=== PATIENT | female | born 1995 | race Caucasian/White ===

== ENCOUNTER 2021-04-17 20:10 | Inpatient (IN) | payer OTHER ==
[2021-04-17] MEDS ORDERED: CITRIC ACID-SODIUM CITRATE 15 ML CUP PO ONE (20:51)
[2021-04-17] MEDS ORDERED: ceFAZolin 3 GM in SODIUM CHLORIDE 0.9% 100 ML IVPB ONE (20:51)
[2021-04-17] MEDS ORDERED: LACTATED RINGERS 1,000 ML IV ONE (20:51)
[2021-04-17 21:01] LABS: Basophils % (A) 0 %; Eosinophils % (A) 0 %; HCT 39.3 % (34.0-46.0); HGB 13.3 gm/dL (11.4-16.0); Lymphocytes # (A) 1.6 k/uL (1.0-4.8); Lymphocytes % (A) 17 %; MCH 32.1 pg (25.0-35.0); MCHC 33.9 g/dL (31.0-37.0); MCV 94.8 fL (80.0-100.0); Mean Platelet Volume 9.7; Monocytes # (A) 0.6 k/uL (0-1.0); Monocytes % (A) 6 %; Neutrophils % (A) 74 %; Platelet Count 201 k/uL (150-450); RBC 4.15 m/uL (3.80-5.40); RDW 12.6 % (11.5-15.5); WBC 9.4 k/uL (3.8-10.6)
--- NOTE | 2021-04-17 21:02 | P.HPOB ---
History of Present Illness H&P Date: 04/17/21 Chief Complaint: Vaginal bleeding, , no care at this facility This is a 26-year-old 2 para 1 female estimated date of confinement May 03 per patient whose had the entirety of her care at [facility]. She states that she's had hypertension was scheduled for a section (repeat) on Tuesday for this reason. Patient was seen in the office yesterday and had an elevated blood pressure and at that time states she had no blood work done. Patient states she was walking began having some bleeding. On admission here patient has a significant blood pressure elevation. Preeclampsia labs are pending. Patient indicates that her first section was done due to hypertension. Patient denies any other problems however her records are made unavailable to us. Review of Systems Genitourinary: Reports abnormal vaginal bleeding, Reports Past Medical History Past Medical History: Hypertension History of Any Multi-Drug Resistant Organisms: None Reported Past Surgical History: Section Past Anesthesia/Blood Transfusion Reactions: No Reported Reaction Past Psychological History: No Psychological Hx Reported Smoking Status: Never smoker Past Alcohol Use History: None Reported Past Drug Use History: None Reported Medications and Allergies Home Medications Medication Instructions Recorded Confirmed Type Aspirin [Children's Aspirin] 1 tab PO ONCE 04/17/21 04/17/21 History Pnv No.95/Ferrous Fum/Folic AC 1 tab PO ONCE 04/17/21 04/17/21 History [ Multivitamin Tablet] Allergies Allergy/AdvReac Type Severity Reaction Status Date / Time No Known Allergies Allergy Verified 04/17/21 20:27 Exam Intake and Output 04/17/21 04/17/21 04/17/21 06:59 14:59 22:59 Other: Weight 136.078 kg - OBG Physical Exam Abdomen: bowel sounds normal, no diffuse tenderness, no bruit present, no guarding noted, no hepatomegaly, no splenomegaly, no mass Vulva: both: normal Uterus: enlarged Assessment and Plan Assessment: This is a 26-year-old 2 para 1 female 37-6/7 week intrauterine with previous section, vaginal bleeding, gestational hypertension rule out preeclampsia. records are not made available to me on this patient from her other doctor therefore we have to assume this is significant hypertension requiring delivery. Patient had scheduled repeat on Tuesday and therefore proceed with immediate delivery at this time by section. I explained this to the patient and her family and they understand and agree to proceed. I did also discuss the surgery and risks and risks of infection, bleeding, possible injury bowel, bladder, vessels, and/or other organs. All the patient's questions are answered and a written consent is obtained. (1) 37 or more weeks gestation of Current Visit: Yes Status: Acute Code(s): [id number] - SNOMED Code(s): 92508298 (2) Gestational hypertension Current Visit: Yes Status: Acute Code(s): O13.9 - GESTATIONAL HTN W/O SIGNIFICANT PROTEINURIA, UNSP TRIMESTER SNOMED Code(s): 81620378 (3) Previous delivery affecting Current Visit: Yes Status: Acute Code(s): O34.219 - MATERNAL CARE FOR UNSP TYPE SCAR FROM PREVIOUS DEL SNOMED Code(s): 095620483 (4) History of inadequate care Current Visit: Yes Status: Acute Code(s): O09.30 - SUPRVSN OF PREG W INSUFFICIENT ANTENAT CARE, UNSP TRIMESTER SNOMED Code(s): 171923283
[2021-04-17 21:09] LABS: ALT 14 U/L (4-34); AST 22 U/L (14-36); African American GFR (CKD) >90 (>60 ml/min/1.73 sqM); Blood Urea Nitrogen 8 mg/dL (7-17); LDH 526 U/L (313-618); Non-African American GFR(CKD) >90 (>60 ml/min/1.73 sqM); Uric Acid 5.2 mg/dL (3.7-7.4)
[2021-04-17 21:42] LABS: INR 0.8 (<1.2); Prothrombin Time 9.3 sec (9.0-12.0)
[2021-04-17 21:48] LABS: Appearance,Urine Clear (Clear); Bilirubin,Urine Negative (Negative); Blood,Urine Negative (Negative); Color,Urine Yellow; Glucose,Urine (UA) Negative (Negative); Ketones,Urine Negative (Negative); Leukocyte Esterase,Urine Negative (Negative); Nitrite,Urine Negative (Negative); Protein,Urine Trace (Negative); Specific Gravity,Urine 1.023 (1.001-1.035); Urobilinogen,Urine <2.0 mg/dL (<2.0)
[2021-04-17 22:02] LABS: Creatinine,Urine Random 157.3 mg/dL
[2021-04-17] MEDS ORDERED: OXYTOCIN 30 UNITS/500 ML NS BAG IV ONE (22:02)
[2021-04-17] MEDS ORDERED: MORPHINE SULFATE (PF) 0.3 MG/0.3 ML SYR ONE (22:02)
[2021-04-17] MEDS ORDERED: KETOROLAC 15 MG/ML 1 ML VIAL ONE (22:02)
[2021-04-17] MEDS ORDERED: ONDANSETRON 4 MG/2 ML VIAL ONE (22:02)
[2021-04-17 22:03] LABS: Creatinine,Urine Random 161.2 mg/dL; Protein/Creatinine Ratio,Urine 0.074
[2021-04-17] MEDS ORDERED: diphenhydrAMINE 25 MG CAP PO PRN (22:56)
[2021-04-17] MEDS ORDERED: diphenhydrAMINE 50 MG/ML 1 ML VIAL IVP PRN (22:56)
[2021-04-17] MEDS ORDERED: METOCLOPRAMIDE 5 MG/ML 2 ML VIAL IVP PRN (22:56)
[2021-04-17] MEDS ORDERED: NALOXONE 0.4 MG/ML 1 ML VIAL IV PRN (22:56)
[2021-04-17] MEDS ORDERED: ONDANSETRON 4 MG/2 ML VIAL IVP PRN (22:56)
[2021-04-17] MEDS ORDERED: ACETAMINOPHEN TAB 500 MG TAB PO PRN (22:56)
[2021-04-17] MEDS ORDERED: LANOLIN CREAM 5 GM TUBE TOPICAL PRN (22:56)
[2021-04-17] MEDS ORDERED: ACETAMINOPHEN IV (For NPO) 1,000 MG in EMPTY BAG 1 BAG IVPB PRN (22:56)
[2021-04-17] MEDS ORDERED: SIMETHICONE 80 MG CHEWABLE PO PRN (22:56)
[2021-04-17] MEDS ORDERED: ZOLPIDEM 5 MG TAB PO PRN (22:56)
[2021-04-17] MEDS ORDERED: OXYTOCIN 30 UNITS/500 ML NS 30 UNIT in SALINE 1 500ML.BAG IV SCH (23:00)
--- NOTE | 2021-04-17 23:09 | P.OP ---
Date of Procedure: 04/17/21 Preoperative Diagnosis: #1: 37-6/7 week intrauterine . #2: Gestational hypertension. #3: Previous section. #4: No care at this institution. #5: Morbid obesity Postoperative Diagnosis: Same Procedure(s) Performed: Repeat low transverse section Anesthesia: spinal Surgeon: Ritesh Herndon Gas Appliance Installer #1: Adelaide Beck Estimated Blood Loss (ml): 1,000 Urine output (ml): 600 Pathology: other (Placenta) Condition: stable Disposition: floor Indications for Procedure: Please see dictated H&P for intimate details of this patient's admission. Brief summary this pleasant 26-year-old 2 para 1 female 37-6/7 weeks gestation presented to this labor and delivery with complaints of vaginal bleeding. Patient's care is another institution records are unavailable to me at the time of admission. On admission patient is significant elevated blood pressure which was persistent. Preeclampsia labs were negative. Patient scheduled for repeat section on Tuesday apparently for this hypertension. At this time was recommended proceed with delivery due to the above circumstances then severe gestational hypertension. Patient does understand the surgery and risks and risks of infection, bleeding, possible injury bowel, bladder, vessels, and/or other organs. All the patient's questions are answered and a written consent obtained. Operative Findings: This is a vigorous viable female Apgars 8 and 9 delivery time was 2216 hrs. Description of Procedure: This patient has a Leon catheter placed to straight drain. Patient is subsequently taken to the operating room where she sat up and spinal anesthetic is administered without incident. With an adequate level of anesthesia patient has abdominal prep and drape. Scalpels and taken the previous Pfannenstiel incision is then incised. A second scalpel is taken down the fascia the fascia scored with a knife. Fascial incision extended bilaterally using the Colón scissors. Of note the fascia on the patient's left side is quite thin from her previous section. The rectus muscles are then the peritoneum was then identified. Peritoneal incision extended superior and inferior without difficulty. There are some omental adhesions to the anterior abdominal wall. At this time the Wilian self-retaining retractor is placed. The bladder perito neum was then taken off the lower uterine segment sharply. Scalpels and taken low transverse uterine incision then made. Using a hemostat I enter the uterine cavity bluntly and there is loss of copious amount of clear fluid. Infant is then guided through the incision with fundal pressure delivered. Mouth and nares are bulb suctioned. We then have deliver the anterior and posterior shoulder and rest this infant's body. This is a vigorous viable female Apgars are 8 and 9 delivery time is 2216 hrs. After delivery of the infant the umbilical cords doubly clamped and cut appears to be trivascular. Placenta is then manually extracted intact. The uterus is then externalized. Uterine incision is then demarcated with Main clamps. Uterine incision then closed using 0 Vicryl running locked fashion 2 layers. Excellent hemostasis is noted. Uterus placed back in the abdomen. Excess fluid is removed from the abdomen and pelvis. Excellent hemostasis is noted. The parietal peritoneum was then identified and closed using 0 Vicryl running fashion. Rectus muscles reapproximated in 0 Vicryl interrupted fashion. Fascia is then closed using 0 PDS. Fascial incision is intact and hemostatic. Subcutaneous tissues and closed using a 3-0 Vicryl. Skin is then closed using fiona. All counts are correct 3. There are no complications. and mother are stable delivery room.
[2021-04-18] MEDS: LACTATED RINGERS 1,000 ML IV SCH ×4 (00:49→20:20)
[2021-04-18] MEDS: KETOROLAC 15 MG/ML 1 ML VIAL IVP SCH ×4 (05:37→23:46)
--- NOTE | 2021-04-18 06:50 | P.MSEPDOC ---
Presenting Problems - Arrival Data Date of Arrival on Unit: 04/17/21 Time of Arrival on Unit: 20:30 Mode of Transport: Ambulatory - Complaint OB-Reason for Admission/Chief Complaint: Vaginal Bleeding Comment: pt presents to triage for spotting Medical History - Information : 2 Para: 1 Term: 1 : 0 Abortions: Spontaneous or Elective: 0 Number of Living Children: 1 - Gestational Age Gestational Age by LINN (wks/days): 37 Weeks and 5 Days - History Complications: Chronic HTN Review of Systems - Review of Systems Constitutional: No problems Breast: No problems ENT: No problems Cardiovascular: No problems Respiratory: No problems Gastrointestinal: No problems Genitourinary: No problems Musculoskeletal: No problems Neurological: No problems Skin: No problems Vital Signs - Temperature Temperature: 96.8 F Temperature Source: Temporal Artery Scan - Pulse Right Brachial Pulse Rate: 83 Pulse Assessment Method: Automatic Cuff - Respirations Respiratory Rate: 16 - Blood Pressure Right Arm Blood Pressure: 108/52 Blood Pressure Mean: 70 Blood Pressure Source: Automatic Cuff Medical Screen Scoring - Uterine Contractions Frequency From (mins): 5 Frequency To (mins): 8 Intensity: Mild Resting: Soft to palpation - Assessment - Baby A Baseline FHR: 145 Heart Rate - NICHD Category: Category I (Normal) NST: Reactive Physician Notification - Physician Notified Physician Notified Date: 04/17/21 Physician Notified Time: 20:40 Physician: Ritesh Herndon New Order Received: Yes - Notification Comment Comment: admit pt and will perform repeat section for hypertension Maternal Triage Index - Maternal Triage Index Presenting for scheduled procedure w/no complaint: No - Stat/Priority 1 Stat Priority 1: Yes Provider Notified: Ritesh Herndon Provider Notified Time: 20:40 Criteria Met for Priority 1: sbp greater than 160 Disposition - Disposition OB Disposition: Admit, LDRP Suite I agree with the RN Medical Screening Exam: Yes Case reviewed; plan agreed upon as documented in EMR&OBIX.: Yes Diagnosis: GESTATIONAL HTN W/O SIGNIFICANT PROTEINURIA, THIRD TRIMESTER (Admission for delivery)
--- NOTE | 2021-04-18 06:51 | P.PNOBGPC ---
Subjective - Subjective Patient reports: Reports appetite normal, Reports voiding normally, Reports pain well controlled, Reports ambulating normally : doing well Objective - Vital Signs Latest vital signs: Vital Signs Temp Pulse Resp BP Pulse Ox 04/18/21 06:50 96.8 F L 83 16 108/52 04/18/21 03:11 96.8 F L 83 16 108/52 04/18/21 00:54 96.4 F L 86 16 124/60 97 04/18/21 00:26 97.3 F L 95 18 168/82 04/18/21 00:24 74 16 134/62 98 04/17/21 23:54 75 16 140/78 04/17/21 23:24 93 18 130/73 98 04/17/21 23:09 88 18 131/74 04/17/21 22:53 97.5 F L 85 18 129/70 97 04/17/21 21:00 97.3 F L 95 18 168/82 Intake and Output 04/17/21 04/17/21 04/18/21 14:59 22:59 06:59 Intake Total 1600 1500 Output Total 700 200 Balance 900 1300 Intake: IV 1600 1500 Output: Urine 700 200 Other: Voiding Method Indwelling Catheter Weight 136.078 kg 136.078 kg - Exam Lungs: bilateral: normal Chest: Normal S1, Normal S2 Extremities: Present: normal Abdomen: Present: normal appearance, soft. Absent: distention, tenderness Incision: Present: normal, dry, intact Uterus: Present: normal, firm - Labs Labs: Abnormal Lab Results - Last 24 Hours (Table) 04/17/21 Range/Units 21:28 Urine Protein Trace H (Negative) Assessment and Plan Assessment: Postoperative day #1. Patient is resting without new complaints. Vital signs are stable she is afebrile. Uterus is firm nontender and her incision is intact and dry. Plan today is to check a CBC, encourage ambulation, advance her diet, and continue routine postoperative care. (1) 37 or more weeks gestation of Current Visit: Yes Status: Acute Code(s): [id number] - SNOMED Code(s): 11874037 (2) Gestational hypertension Current Visit: Yes Status: Acute Code(s): O13.9 - GESTATIONAL HTN W/O SIGNIFICANT PROTEINURIA, UNSP TRIMESTER SNOMED Code(s): 69908745 (3) Previous delivery affecting Current Visit: Yes Status: Acute Code(s): O34.219 - MATERNAL CARE FOR UNSP TYPE SCAR FROM PREVIOUS DEL SNOMED Code(s): 461248047 (4) History of inadequate care Current Visit: Yes Status: Acute Code(s): O09.30 - SUPRVSN OF PREG W INSUFFICIENT ANTENAT CARE, UNSP TRIMESTER SNOMED Code(s): 863646103
[2021-04-18] MEDS: SENNOSIDES-DOCUSATE SODIUM 1 EACH TAB PO SCH ×2 (08:00→20:09)
[2021-04-18 09:25] LABS: Basophils % (A) 0 %; Eosinophils # (A) 0.1 k/uL (0-0.7); Eosinophils % (A) 1 %; HCT 33.9 % (34.0-46.0); HGB 11.8 gm/dL (11.4-16.0); Lymphocytes % (A) 16 %; MCH 33.3 pg (25.0-35.0); MCHC 34.9 g/dL (31.0-37.0); MCV 95.4 fL (80.0-100.0); Mean Platelet Volume 9.2; Monocytes # (A) 0.6 k/uL (0-1.0); Monocytes % (A) 5 %; Neutrophils # (A) 9.2 k/uL (1.3-7.7); Neutrophils % (A) 77 %; Platelet Count 176 k/uL (150-450); RBC 3.55 m/uL (3.80-5.40); RDW 12.8 % (11.5-15.5)
[2021-04-18 10:54] LABS: Urine Alcohol Negative (Negative); Urine Barbiturate Negative (Negative); Urine Cocaine Negative (Negative); Urine Methadone Negative (Negative); Urine Opiates Negative (Negative); Urine Phencyclidine Negative (Negative)
[2021-04-18 20:01] LABS: Hepatitis B Surface Antigen Non-Reactive (Non-Reactive)
--- NOTE | 2021-04-18 20:57 | P.PN ---
Progress Note - Text 04/18/21 [id number] 86-year-old female status post with spinal Duramorph. Patient seen and evaluated this evening, patient had a VAS score 9 with complaints of nausea vomiting and pruritus. Not sure if it was pain or pressure that was bothering the patient nonetheless she is doing much better today
[2021-04-19] MEDS: LACTATED RINGERS 1,000 ML IV SCH (04:11)
[2021-04-19] MEDS: KETOROLAC 15 MG/ML 1 ML VIAL IVP SCH (05:26)
--- NOTE | 2021-04-19 07:29 | P.PNOBGPC ---
Subjective - Subjective Patient reports: Reports appetite normal, Reports voiding normally, Reports pain well controlled, Reports ambulating normally : doing well Objective - Vital Signs Latest vital signs: Vital Signs Temp Pulse Resp BP Pulse Ox 04/19/21 03:24 97.0 F L 85 16 117/72 04/19/21 00:00 98.5 F 84 16 137/85 04/18/21 19:58 98.1 F 83 16 140/70 04/18/21 15:45 98.2 F 81 16 131/64 95 04/18/21 11:33 97.7 F 78 18 138/88 98 04/18/21 08:00 98.5 F 72 16 137/70 97 Intake and Output 04/18/21 04/19/21 04/19/21 22:59 06:59 14:59 Output Total 600 100 Balance -600 -100 Output: Urine 600 100 Other: # Voids 1 1 - Exam Lungs: bilateral: normal Chest: Normal S1, Normal S2 Extremities: Present: normal Abdomen: Present: normal appearance, soft. Absent: distention, tenderness Incision: Present: normal, dry, intact Uterus: Present: normal, firm - Labs Labs: Abnormal Lab Results - Last 24 Hours (Table) 04/18/21 Range/Units 09:11 WBC 12.0 H (3.8-10.6) k/uL RBC 3.55 L (3.80-5.40) m/uL Hct 33.9 L (34.0-46.0) % Neutrophils # 9.2 H (1.3-7.7) k/uL Assessment and Plan Assessment: Post operative day #2. Patient is resting without new complaints. Vital signs are stable and she is afebrile. Uterus is firm nontender and her incision is intact and dry. CBC yesterday was normal. Plan today is to continue routine postoperative care. Most likely discharge home tomorrow. (1) 37 or more weeks gestation of Current Visit: Yes Status: Acute Code(s): [id number] - SNOMED Code(s): 12890832 (2) Gestational hypertension Current Visit: Yes Status: Acute Code(s): O13.9 - GESTATIONAL HTN W/O SIGNIFICANT PROTEINURIA, UNSP TRIMESTER SNOMED Code(s): 79205498 (3) Previous delivery affecting Current Visit: Yes Status: Acute Code(s): O34.219 - MATERNAL CARE FOR UNSP TYPE SCAR FROM PREVIOUS DEL SNOMED Code(s): 498016318 (4) History of inadequate care Current Visit: Yes Status: Acute Code(s): O09.30 - SUPRVSN OF PREG W INSUFFICIENT ANTENAT CARE, UNSP TRIMESTER SNOMED Code(s): 340751342
--- NOTE | 2021-04-19 08:09 | P.MSEPDOC ---
Presenting Problems - Arrival Data Date of Arrival on Unit: 04/17/21 Time of Arrival on Unit: 20:30 Mode of Transport: Ambulatory - Complaint OB-Reason for Admission/Chief Complaint: Vaginal Bleeding Comment: pt presents to triage for spotting Medical History - Information : 2 Para: 1 Term: 1 : 0 Abortions: Spontaneous or Elective: 0 Number of Living Children: 1 - Gestational Age Gestational Age by LINN (wks/days): 37 Weeks and 5 Days - History Complications: Chronic HTN Review of Systems - Review of Systems Constitutional: No problems Breast: No problems ENT: No problems Cardiovascular: No problems Respiratory: No problems Gastrointestinal: No problems Genitourinary: No problems Musculoskeletal: No problems Neurological: No problems Skin: No problems Vital Signs - Temperature Temperature: 97.0 F Temperature Source: Tympanic - Pulse Right Brachial Pulse Rate: 85 Pulse Assessment Method: Automatic Cuff - Respirations Respiratory Rate: 16 Oxygen Delivery Method: Room Air - Blood Pressure Right Arm Blood Pressure: 117/72 Blood Pressure Mean: 87 Blood Pressure Source: Automatic Cuff Medical Screen Scoring - Uterine Contractions Frequency From (mins): 5 Frequency To (mins): 8 Intensity: Mild Resting: Soft to palpation - Assessment - Baby A Baseline FHR: 145 Heart Rate - NICHD Category: Category I (Normal) NST: Reactive Physician Notification - Physician Notified Physician Notified Date: 04/17/21 Physician Notified Time: 20:40 Physician: Ritesh Herndon New Order Received: Yes - Notification Comment Comment: admit pt and will perform repeat section for hypertension Maternal Triage Index - Maternal Triage Index Presenting for scheduled procedure w/no complaint: No - Stat/Priority 1 Stat Priority 1: Yes Provider Notified: Ritesh Herndon Provider Notified Time: 20:40 Criteria Met for Priority 1: sbp greater than 160 Disposition - Disposition OB Disposition: Admit, LDRP Suite I agree with the RN Medical Screening Exam: Yes Case reviewed; plan agreed upon as documented in EMR&OBIX.: Yes Diagnosis: GESTATIONAL HTN W/O SIGNIFICANT PROTEINURIA, THIRD TRIMESTER (Admissi on for delivery)
[2021-04-19] MEDS: SENNOSIDES-DOCUSATE SODIUM 1 EACH TAB PO SCH ×2 (09:32→20:39)
[2021-04-19] MEDS: IBUPROFEN 600 MG TAB PO PRN (12:16)
[2021-04-19 20:45] VITALS: RESP 18
[2021-04-20 00:23] VITALS: PULSE 97
[2021-04-20] MEDS: IBUPROFEN 600 MG TAB PO PRN (04:14)
--- NOTE | 2021-04-20 05:16 | P.PNOBGPC ---
Subjective - Subjective Patient reports: Reports appetite normal, Reports voiding normally, Reports pain well controlled, Reports ambulating normally : doing well Objective - Vital Signs Latest vital signs: Vital Signs Temp Pulse Resp BP Pulse Ox 04/20/21 00:00 98.2 F 97 18 144/78 98 04/19/21 20:00 98.4 F 89 18 128/79 04/19/21 16:00 98.3 F 79 16 133/76 04/19/21 08:09 97.0 F L 85 16 117/72 04/19/21 08:00 98.5 F 85 16 132/75 - Exam Lungs: bilateral: normal Chest: Normal S1, Normal S2 Extremities: Present: normal Abdomen: Present: normal appearance, soft. Absent: distention, tenderness Incision: Present: normal, dry, intact Uterus: Present: normal, firm Assessment and Plan Assessment: Postoperative day #3. Patient is resting without new complaints. Blood pr essures are normal. She is afebrile. Uterus is firm nontender her incision is intact and dry. My impression this is a normal postoperative course. Plan is to continue routine postoperative care discharge home this morning. Patient will follow up with her primary communication center coordinator this week for blood pressure check and incision check. (1) 37 or more weeks gestation of Current Visit: Yes Status: Acute Code(s): [id number] - SNOMED Code(s): 71740806 (2) Gestational hypertension Current Visit: Yes Status: Acute Code(s): O13.9 - GESTATIONAL HTN W/O SIGNIFICANT PROTEINURIA, UNSP TRIMESTER SNOMED Code(s): 42945193 (3) Previous delivery affecting Current Visit: Yes Status: Acute Code(s): O34.219 - MATERNAL CARE FOR UNSP TYPE SCAR FROM PREVIOUS DEL SNOMED Code(s): 644918910 (4) History of inadequate care Current Visit: Yes Status: Acute Code(s): O09.30 - SUPRVSN OF PREG W INSUFFICIENT ANTENAT CARE, UNSP TRIMESTER SNOMED Code(s): 235184949
--- NOTE | 2021-04-20 05:25 | P.DS ---
Providers Date of admission: 04/17/21 20:55 Expected date of discharge: 04/20/21 Attending physician: Ritesh Herndon Primary care physician: Stated None - Discharge Diagnosis(es) (1) 37 or more weeks gestation of Current Visit: Yes Status: Acute (2) Gestational hypertension Current Visit: Yes Status: Acute (3) Previous delivery affecting Current Visit: Yes Status: Acute (4) History of inadequate care Current Visit: Yes Status: Acute Hospital Course: Please see dictated H&P for this patient's admission. In brief summary this is a 26-year-old 2 para 1 female of [facility] 37-5/7 weeks who presents to labor and delivery with complaints of bleeding found to have significant hypertension without preeclampsia. Patient previous section and had a planned repeat. Patient subsequently underwent a repeat low transverse section for viable female . Please see dictated oper ative note. Postoperative patient's blood pressures normalized. On postoperative 3 she felt be stable for discharge home follow up with her primary microcomputer support specialist. Procedures: Repeat low transverse section Patient Condition at Discharge: Good Plan - Discharge Summary New Discharge Prescriptions: New Ibuprofen [Motrin] 600 mg PO Q6H PRN #30 tab PRN Reason: Pain oxyCODONE HCL [OxyIR] 5 mg PO Q4HR PRN #18 tab PRN Reason: Pain No Action Pnv No.95/Ferrous Fum/Folic AC [ Multivitamin Tablet] 1 tab PO ONCE Aspirin [Children's Aspirin] 1 tab PO ONCE Discharge Medication List Aspirin [Children's Aspirin] 1 tab PO ONCE 04/17/21 [History] Pnv No.95/Ferrous Fum/Folic AC [ Multivitamin Tablet] 1 tab PO ONCE 04/17/21 [History] Ibuprofen [Motrin] 600 mg PO Q6H PRN #30 tab 04/18/21 [Rx] oxyCODONE HCL [OxyIR] 5 mg PO Q4HR PRN #18 tab 04/18/21 [Rx] Follow up Appointment(s)/Referral(s): Laxmi Cross MD [REFERRING] - 1 Week (Please call your physician's office and see her this week for blood pressure and an incision check.) Patient Instructions/Handouts: (DC) Activity/Diet/Wound Care/Special Instructions: No heavy lifting or strenuous activities for 6 weeks. No intercourse or anything per vagina for 6 weeks. Please call your physician if you have any fever, chills, excessive vaginal bleeding, and/or abdominal pain. Discharge Disposition: HOME SELF-CARE
[2021-04-20 08:22] VITALS: BP 149/83; TEMP 98.6
[2021-04-20] MEDS: SENNOSIDES-DOCUSATE SODIUM 1 EACH TAB PO SCH (08:23)
[2021-04-20 13:11] LABS: HIV 2 AB Non-Reactive (Non-Reactive); HIV AB P24 Non-Reactive (Non-Reactive); HIV P24 AG Non-Reactive (Non-Reactive)
== END 2021-04-20 11:20 | disposition home or self-care (01) | DRG 788 ==
LOC: FBPOP 20:10 → 4FBP 20:55
PROVIDERS: ADMIT Obstetrics & Gynecology; ATTEND Obstetrics & Gynecology
PROC: 10D00Z1 Extraction of Products of Conception, Low, Open Approach (ICD-10-PCS; principal; 2021-04-17 22:14)
DX: O13.4 Gestational [pregnancy-induced] hypertension without significant proteinuria, complicating childbirth (principal); Z37.0 Single live birth; Z3A.37 37 weeks gestation of pregnancy; O34.211 Maternal care for low transverse scar from previous cesarean delivery; O99.214 Obesity complicating childbirth; O12.14 Gestational proteinuria, complicating childbirth; E66.01 Morbid (severe) obesity due to excess calories; L29.9 Pruritus, unspecified; O75.89 Other specified complications of labor and delivery
CPT/HCPCS: 59025; 80306; 81003; 82565; 82570; 83615; 84156; 84450; 84460; 84520; 84550; 85025; 85384; 85610; 85730; 86762; 86780; 86850; 86900; 86901; 87340; 87390; 99215

== ENCOUNTER 2022-12-16 16:02 | Emergency (ER) | payer OTHER ==
--- NOTE | 2022-12-16 16:55 | ED ---
Female Urogenital HPI - General Chief complaint: Vaginal Bleeding Stated complaint: 17 weeks preg/vaginal bleeding Time Seen by Provider: 12/16/22 16:55 Source: patient Mode of arrival: ambulatory Limitations: no limitations - History of Present Illness Initial comments: This is a 27-year-old female currently 17 weeks presenting with chief complaint of vaginal bleeding. Patient states that the bleeding started about 2 hours ago, she believes that it has since stopped but she wanted to be evaluated. She is not experiencing any pelvic pain at this time. No nausea, vomiting, chest pain, difficulty breathing, fever, chills. Patient follows with Dr. Champagne - Related Data Home Medications Medication Instructions Recorded Confirmed Aspirin [Children's Aspirin] 1 tab PO ONCE 04/17/21 04/17/21 Pnv No.95/Ferrous Fum/Folic AC 1 tab PO ONCE 04/17/21 04/17/21 [ Multivitamin Tablet] Previous Rx's Medication Instructions Recorded Ibuprofen [Motrin] 600 mg PO Q6H PRN #30 tab 04/18/21 oxyCODONE HCL [OxyIR] 5 mg PO Q4HR PRN #18 tab 04/18/21 Cephalexin [Keflex] 500 mg PO Q12HR 5 Days #10 cap 12/16/22 Allergies Allergy/AdvReac Type Severity Reaction Status Date / Time No Known Allergies Allergy Verified 12/16/22 16:51 Review of Systems ROS Statement: Those systems with pertinent positive or pertinent negative responses have been documented in the HPI. ROS Other: All systems not noted in ROS Statement are negative. Past Medical History Past Medical History: Hypertension History of Any Multi-Drug Resistant Organisms: None Reported Past Surgical History: Section Past Anesthesia/Blood Transfusion Reactions: No Reported Reaction Past Psychological History: No Psychological Hx Reported Smoking Status: Never smoker Past Alcohol Use History: None Reported Past Drug Use History: None Reported - Past Family History Mother Family Medical History: Unable to Obtain General Exam - General Exam Comments Initial Comments: Visual Physical Exam Vital signs reviewed General: Well-appearing, nontoxic, no acute distress. Head: Normocephalic, atraumatic Eyes: PERRLA, EOMI ENT: Airway patent Chest: Nonlabored breathing Skin: No visual rash, normal skin tone Neuro: Alert and oriented 3 Musculoskeletal: No gross abnormalities Limitations: no limitations General appearance: alert, in no apparent distress Head exam: Present: atraumatic, normocephalic, normal inspection Eye exam: Present: normal appearance Neck exam: Present: full ROM. Absent: normal inspection Respiratory exam: Present: normal lung sounds bilaterally. Absent: respiratory distress, wheezes, rales, rhonchi, stridor Cardiovascular Exam: Present: regular rate, normal rhythm, normal heart sounds. Absent: systolic murmur, diastolic murmur, rubs, gallop, clicks Neurological exam: Present: alert, oriented X3, CN II-XII intact Psychiatric exam: Present: normal affect, normal mood Skin exam: Present: warm, dry, intact, normal color. Absent: rash Course Vital Signs 12/16/22 12/16/22 16:49 20:23 Temperature 98.5 F 98.7 F Pulse Rate 83 84 Respiratory 18 16 Rate Blood Pressure 146/83 133/73 O2 Sat by Pulse 100 99 Oximetry Medical Decision Making - Medical Decision Making Was pt. sent in by a medical professional or institution (, PA, CENTER CONSULTANT, urgent care, hospital, or senior care...) When possible be specific @ -No Did you speak to anyone other than the patient for history (EMS, parent, family, police, friend...)? What history was obtained from this source @ -No Did you review nursing and triage notes (agree or disagree)? Why? @ -I reviewed and agree with nursing and triage notes Were old charts reviewed (outside hosp., previous admission, EMS record, old EKG, old radiological studies, urgent care reports/EKG's, senior care records)? Report findings @ -No old charts were reviewed Differential Diagnosis (chest pain, altered mental status, abdominal pain women, abdominal pain men, vaginal bleeding, weakness, fever, dyspnea, syncope, headache, dizziness, GI bleed, back pain, seizure, CVA, palpatations, mental health, musculoskeletal)? @ -MDM Differential Vaginal Bleeding: Spontaneous , threatened , molar , ectopic , bloody show, incompetent cervix, abruptioplacenta, placenta previa, uterine rup ture, dysfunctional uterine bleeding, hemorrhage, uterine fibroids. ... This is not meant to be an all-inclusive list EKG interpreted by me (3pts min.). @ -As above X-rays interpreted by me (1pt min.). @ -None done CT interpreted by me (1pt min.). @ -None done U/S interpreted by me (1pt. min.). @ -Ultrasound shows no acute process. Single IUP with heart rate 148 What testing was considered but not performed or refused? (CT, X-rays, U/S, labs)? Why? @ -None What meds were considered but not given or refused? Why? @ -None Did you discuss the management of the patient with other professionals (professionals i.e. , PA, CENTER CONSULTANT, lab, RT, psych nurse, group social worker, jewelry bench molder, teacher, safety security officer, manager pest)? Give summary @ -No Was smoking cessation discussed for >3mins.? @ -No Was critical care preformed (if so, how long)? @ -No Were there social determinants of health that impacted care today? How? (Homelessness, low income, unemployed, alcoholism, drug addiction, transportation, low edu. Level, literacy, decrease access to med. care, fdc, rehab)? @ -No Was there de-escalation of care discussed even if they declined (Discuss DNR or withdrawal of care, Hospice)? DNR status @ -No What co-morbidities impacted this encounter? (DM, HTN, Smoking, COPD, CAD, Cancer, CVA, ARF, Chemo, Hep., AIDS, mental health diagnosis, sleep apnea, morbid obesity)? @ -None Was patient admitted / discharged? Hospital course, mention meds given and route, prescriptions, significant lab abnormalities, going to OR and other pertinent info. @ -Patient is a 27-year-old female presenting with chief complaint of vaginal bleeding. She is a currently 17 weeks . Lab work shows no leukocytosis or anemia. HCG is 8299.5. Urine shows moderate leukocytes with 40 WBCs, patient will be treated for asymptomatic bacteriuria with Keflex. She is blood type O positive. Ultrasound shows no complicating process. Patient is resting comfortably. She appears stable for discharge with outpatient follow-up at this time. Follow-up with SERVICE LINE COORDINATOR. Follow-up with PCP. Report back to ER with any new or worsening symptoms. Discussed return parameters and answered all questions. Patient conveyed verbal understanding and agreed to the plan. I discussed this case in detail with my attending Dr. Sanders Undiagnosed new problem with uncertain prognosis? @ -No Drug Therapy requiring intensive monitoring for toxicity (Heparin, Nitro, Insulin, Cardizem)? @ -No Were any procedures done? @ -No Diagnosis/symptom? @ -Vaginal bleeding in Acute, or Chronic, or Acute on Chronic? @ -Acute Uncomplicated (without systemic symptoms) or Complicated (systemic symptoms)? @ -uncomplicated Side effects of treatment? @ -No Exacerbation, Progression, or Severe Exacerbation? @ -No Poses a threat to life or bodily function? How? (Chest pain, [place], [place], pneumonia, PE, COPD, DKA, ARF, appy, cholecystitis, CVA, Diverticulitis, Homicidal, Suicidal, threat to staff... and all critical care pts) @ -No - Lab Data Result diagrams: 12/16/22 18:25 12/16/22 18:25 Lab Results 12/16/22 12/16/22 12/16/22 Range/Units 18:25 18:25 18:25 WBC 7.7 (3.8-10.6) k/uL RBC 4.49 (3.80-5.40) m/uL Hgb 14.1 (11.4-16.0) gm/dL Hct 41.2 (34.0-46.0) % MCV 91.7 (80.0-100.0) fL MCH 31.4 (25.0-35.0) pg MCHC 34.2 (31.0-37.0) g/dL RDW 12.9 (11.5-15.5) % Plt Count 204 (150-450) k/uL MPV 8.8 Neutrophils % 71 % Lymphocytes % 21 % Monocytes % 5 % Eosinophils % 0 % Basophils % 0 % Neutrophils # 5.5 (1.3-7.7) k/uL Lymphocytes # 1.6 (1.0-4.8) k/uL Monocytes # 0.4 (0-1.0) k/uL Eosinophils # 0.0 (0-0.7) k/uL Basophils # 0.0 (0-0.2) k/uL PT 9.4 (9.0-12.0) sec INR 0.9 (<1.2) APTT 24.2 (22.0-30.0) sec Sodium (137-145) mmol/L Potassium (3.5-5.1) mmol/L Chloride (98-107) mmol/L Carbon Dioxide (22-30) mmol/L Anion Gap mmol/L BUN (7-17) mg/dL Creatinine (0.52-1.04) mg/dL Est GFR (CKD-EPI)AfAm (>60 ml/min/1.73 sqM) Est GFR (CKD-EPI)NonAf (>60 ml/min/1.73 sqM) Glucose (74-99) mg/dL Calcium (8.4-10.2) mg/dL Total Bilirubin (0.2-1.3) mg/dL AST (14-36) U/L ALT (4-34) U/L Alkaline Phosphatase (38-126) U/L Total Protein (6.3-8.2) g/dL Albumin (3.5-5.0) g/dL HCG, Quant mIU/mL Urine Color Yellow Urine Appearance Clear (Clear) Urine pH 5.5 (5.0-8.0) Ur Specific [place] 1.018 (1.001-1.035) Urine Protein Negative (Negative) Urine Glucose (UA) Negative (Negative) Urine Ketones Negative (Negative) Urine Blood Negative (Negative) Urine Nitrite Negative (Negative) Urine Bilirubin Negative (Negative) Urine Urobilinogen <2.0 (<2.0) mg/dL Ur Leukocyte Esterase Moderate H (Negative) Urine RBC 1 (0-5) /hpf Urine WBC 40 H (0-5) /hpf Ur Squamous Epith Cells 4 (0-4) /hpf Urine Bacteria Few H (None) /hpf Urine Mucus Occasional H (None) /hpf Blood Type Blood Type Recheck Bld Type Recheck Status 12/16/22 12/16/22 Range/Units 18:25 18:25 WBC (3.8-10.6) k/uL RBC (3.80-5.40) m/uL Hgb (11.4-16.0) gm/dL Hct (34.0-46.0) % MCV (80.0-100.0) fL MCH (25.0-35.0) pg MCHC (31.0-37.0) g/dL RDW (11.5-15.5) % Plt Count (150-450) k/uL MPV Neutrophils % % Lymphocytes % % Monocytes % % Eosinophils % % Basophils % % Neutrophils # (1.3-7.7) k/uL Lymphocytes # (1.0-4.8) k/uL Monocytes # (0-1.0) k/uL Eosinophils # (0-0.7) k/uL Basophils # (0-0.2) k/uL PT (9.0-12.0) sec INR (<1.2) APTT (22.0-30.0) sec Sodium 136 L (137-145) mmol/L Potassium 4.0 (3.5-5.1) mmol/L Chloride 103 (98-107) mmol/L Carbon Dioxide 24 (22-30) mmol/L Anion Gap 9 mmol/L BUN 6 L (7-17) mg/dL Creatinine 0.52 (0.52-1.04) mg/dL Est GFR (CKD-EPI)AfAm >90 (>60 ml/min/1.73 sqM) Est GFR (CKD-EPI)NonAf >90 (>60 ml/min/1.73 sqM) Glucose 84 (74-99) mg/dL Calcium 9.4 (8.4-10.2) mg/dL Total Bilirubin 0.5 (0.2-1.3) mg/dL AST 20 (14-36) U/L ALT 15 (4-34) U/L Alkaline Phosphatase 103 (38-126) U/L Total Protein 7.8 (6.3-8.2) g/dL Albumin 4.3 (3.5-5.0) g/dL HCG, Quant 8299.5 mIU/mL Urine Color Urine Appearance (Clear) Urine pH (5.0-8.0) Ur Specific [place] (1.001-1.035) Urine Protein (Negative) Urine Glucose (UA) (Negative) Urine Ketones (Negative) Urine Blood (Negative) Urine Nitrite (Negative) Urine Bilirubin (Negative) Urine Urobilinogen (<2.0) mg/dL Ur Leukocyte Esterase (Negative) Urine RBC (0-5) /hpf Urine WBC (0-5) /hpf Ur Squamous Epith Cells (0-4) /hpf Urine Bacteria (None) /hpf Urine Mucus (None) /hpf Blood Type O Positive Blood Type Recheck O Pos Bld Type Recheck Status No Disposition Clinical Impression: Vaginal bleeding during Disposition: HOME SELF-CARE Condition: Good Instructions (If sedation given, give patient instructions): Threatened Miscarriage (ED) Additional Instructions: Report back to ER with any new or worsening symptoms. Follow-up with SERVICE LINE COORDINATOR. Take medication as prescribed. Prescriptions: Cephalexin [Keflex] 500 mg PO Q12HR 5 Days #10 cap Is patient prescribed a controlled substance at d/c from ED?: No Referrals: Nonstaff,Physician [REFERRING] - 1-2 days Pina Augustin MD [STAFF PHYSICIAN] - 1-2 days Time of Disposition: 19:53
[2022-12-16] MEDS ORDERED: SODIUM CHLORIDE 0.9% 1,000 ML IV ONE (18:01)
[2022-12-16 18:49] LABS: Basophils % (A) 0 %; Eosinophils % (A) 0 %; HCT 41.2 % (34.0-46.0); HGB 14.1 gm/dL (11.4-16.0); Lymphocytes # (A) 1.6 k/uL (1.0-4.8); Lymphocytes % (A) 21 %; MCH 31.4 pg (25.0-35.0); MCHC 34.2 g/dL (31.0-37.0); MCV 91.7 fL (80.0-100.0); Mean Platelet Volume 8.8; Monocytes # (A) 0.4 k/uL (0-1.0); Monocytes % (A) 5 %; Neutrophils # (A) 5.5 k/uL (1.3-7.7); Neutrophils % (A) 71 %; Platelet Count 204 k/uL (150-450); RBC 4.49 m/uL (3.80-5.40); RDW 12.9 % (11.5-15.5); WBC 7.7 k/uL (3.8-10.6)
[2022-12-16 18:53] LABS: Appearance,Urine Clear (Clear); Bacteria,Urine Few /hpf; Bilirubin,Urine Negative (Negative); Blood,Urine Negative (Negative); Color,Urine Yellow; Glucose,Urine (UA) Negative (Negative); Ketones,Urine Negative (Negative); Leukocyte Esterase,Urine Moderate (Negative); Mucus,Urine Occasional /hpf; Nitrite,Urine Negative (Negative); PH, Urine 5.5 (5.0-8.0); Protein,Urine Negative (Negative); RBC,Urine 1 /hpf (0-5); Specific Gravity,Urine 1.018 (1.001-1.035); Squamous Epithelial Cell,Urine 4 /hpf (0-4); Urobilinogen,Urine <2.0 mg/dL (<2.0); WBC,Urine 40 /hpf (0-5)
[2022-12-16 18:57] LABS: INR 0.9 (<1.2)
[2022-12-16 18:58] LABS: Partial Thromboplastin Time 24.2 sec (22.0-30.0); Prothrombin Time 9.4 sec (9.0-12.0)
[2022-12-16 19:04] LABS: ALT 15 U/L (4-34); AST 20 U/L (14-36); African American GFR (CKD) >90 (>60 ml/min/1.73 sqM); Albumin 4.3 g/dL (3.5-5.0); Alkaline Phosphatase 103 U/L (38-126); Anion Gap 9 mmol/L; Blood Urea Nitrogen 6 mg/dL (7-17); Calcium 9.4 mg/dL (8.4-10.2); Carbon Dioxide 24 mmol/L (22-30); Chloride 103 mmol/L (98-107); Glucose 84 mg/dL (74-99); Non-African American GFR(CKD) >90 (>60 ml/min/1.73 sqM); Sodium 136 mmol/L (137-145); Total Bilirubin 0.5 mg/dL (0.2-1.3); Total Protein 7.8 g/dL (6.3-8.2)
--- NOTE | 2022-12-16 19:18 | US ---
EXAMINATION TYPE: US OB >= 14 wk fetus DATE OF EXAM: 12/16/2022 COMPARISON: None CLINICAL HISTORY: pain; Pt states she was spotting 1 time after going to the bathroom today TECHNIQUE: Transabdominal (TA) GESTATIONAL AGE / DATING Physician Established: (17 weeks/2 days) EDC: 05/24/23 Dates by First Scan: No previous this is first scan Dates by Current Scan: (17 weeks/4 days) EDC: 05/22/23 Beta HCG (if available): N/A SURVEY IUP: Single PLACENTA: Posterior PREVIA: No Previa PAOLA: 11.8 cm Normal CERVICAL LENGTH (transabdominal: norm > 3.0cm): 3.3 cm BIOMETRY PRESENTATION: Breech LIE: Longitudinal BPD: 3.82 cm 17 weeks / 5 days HC: 14.5 cm 17 weeks / 5 days AC: 11.5 cm 17 weeks / 2 days FL: 2.5 cm 17 weeks / 4 days ESTIMATED WEIGHT IN GRAMS: 195.6 grams ESTIMATED WEIGHT IN LBS/OZ: 0 lbs. 7 oz. WEIGHT PERCENTAGE BASED ON ESTABLISHED DATES: 55.4% HC/AC: 1.26 Normal FL/AC: 21.6 Normal HEART RATE: 148 bpm RHYTHM: Normal No obvious abnormality visualized IMPRESSION: No acute process.
[2022-12-16 19:20] LABS: HCG,Quantitative Serum 8299.5 mIU/mL
[2022-12-16 20:24] VITALS: BP 133/73; PULSE 84; RESP 16; TEMP 98.7
== END 2022-12-16 20:37 | disposition home or self-care (01) ==
LOC: EC 16:02
DX: O46.92 Antepartum hemorrhage, unspecified, second trimester (principal); I10 Essential (primary) hypertension; Z79.82 Long term (current) use of aspirin; Z3A.17 17 weeks gestation of pregnancy
CPT/HCPCS: 36415; 76805; 80053; 81001; 84702; 85025; 85610; 85730; 86900; 86901; 87086; 99284

== ENCOUNTER 2023-05-02 11:34 | Inpatient (IN) | payer OTHER ==
[2023-05-02 12:14] LABS: Basophils % (A) 0 %; Eosinophils # (A) 0.1 k/uL (0-0.7); Eosinophils % (A) 1 %; HCT 37.3 % (34.0-46.0); HGB 12.7 gm/dL (11.4-16.0); Lymphocytes # (A) 1.8 k/uL (1.0-4.8); Lymphocytes % (A) 20 %; Mean Platelet Volume 10.1; Monocytes # (A) 0.5 k/uL (0-1.0); Monocytes % (A) 5 %; Neutrophils # (A) 6.6 k/uL (1.3-7.7); Neutrophils % (A) 72 %; Platelet Count 167 k/uL (150-450); RBC 3.97 m/uL (3.80-5.40); WBC 9.1 k/uL (3.8-10.6)
[2023-05-02 12:28] LABS: Amorphous Sediment,Urine Rare /hpf; Appearance,Urine Clear (Clear); Bacteria,Urine Rare /hpf; Bilirubin,Urine Negative (Negative); Blood,Urine Negative (Negative); Color,Urine Colorless; Glucose,Urine (UA) Negative (Negative); Ketones,Urine Negative (Negative); Leukocyte Esterase,Urine Large (Negative); Nitrite,Urine Negative (Negative); PH, Urine 7.5 (5.0-8.0); Protein,Urine Negative (Negative); RBC,Urine 1 /hpf (0-5); Specific Gravity,Urine 1.004 (1.001-1.035); Squamous Epithelial Cell,Urine 1 /hpf (0-4); Urobilinogen,Urine <2.0 mg/dL (<2.0); WBC,Urine 15 /hpf (0-5)
[2023-05-02 12:40] LABS: ALT 16 U/L (4-34); AST 23 U/L (14-36); African American GFR (CKD) >90 (>60 ml/min/1.73 sqM); Blood Urea Nitrogen 9 mg/dL (7-17); LDH 226 U/L (120-246); Non-African American GFR(CKD) >90 (>60 ml/min/1.73 sqM); Uric Acid 5.1 mg/dL (3.7-7.4)
[2023-05-02 12:41] LABS: Creatinine,Urine Random 21.3 mg/dL; Protein/Creatinine Ratio,Urine 0.61
[2023-05-02] MEDS ORDERED: CARBOPROST TROMETHAMINE 250 MCG/ML 1 ML AMP IM PRN (13:02)
[2023-05-02] MEDS ORDERED: CITRIC ACID-SODIUM CITRATE 15 ML CUP PO ONE (13:02)
[2023-05-02] MEDS ORDERED: OXYTOCIN 10 UNIT/ML 1 ML VIAL IM PRN (13:02)
[2023-05-02] MEDS ORDERED: miSOPROStoL 200 MCG TAB PO PRN (13:02)
[2023-05-02] MEDS ORDERED: METHYLERGONOVINE 0.2 MG/ML 1 ML AMP IM PRN (13:02)
[2023-05-02] MEDS ORDERED: TRANEXAMIC 1,000 MG/100ML-NACL 1,000 MG in EMPTY BAG 1 BAG IV PRN (13:02)
[2023-05-02] MEDS ORDERED: ceFAZolin 3 GM in SODIUM CHLORIDE 0.9% 100 ML IVPB ONE (13:07)
[2023-05-02] MEDS ORDERED: LACTATED RINGERS 1,000 ML IV ONE (13:07)
[2023-05-02] MEDS ORDERED: OXYTOCIN 30 UNITS/500 ML NS 30 UNIT in SALINE 1 500ML.BAG IV SCH (13:15)
--- NOTE | 2023-05-02 19:03 | P.HPOB ---
History of Present Illness H&P Date: 05/02/23 Chief Complaint: Chronic hypertension with increasing blood pressures 28 year old at 36 weeks and 6 days gestation with EDC of 05/24/2023 (by 6 week US not consistent with LMP) with chronic hypertension on Procardial XL 30mg daily who was sent from the office this morning with increased blood pressures and intermittent headache that did not respond to Tylenol yesterday evening. is also complicated by obesity. 32 week ultrasound estimated the fetus to be in the 92%ile. On laboratory work-up in triage today, [facility] labs are normal except elevated urine P:C ratio of 0.6. Obstetric history: 2 full term sections Maternal work up: blood type O positive, antibody negative, rubella immune, VDRL non-reactive, HBsAg negative, HIV negative, gonorrhea negative, chlamydia negative, 1 hour GTT 123. TDap administered 03/28/2023. GBS unknown (but collec ramone in office 05/02) Past Medical History Past Medical History: Hypertension History of Any Multi-Drug Resistant Organisms: None Reported Past Surgical History: Section Past Anesthesia/Blood Transfusion Reactions: No Reported Reaction Smoking Status: Never smoker - Past Family History Mother Family Medical History: Unable to Obtain Medications and Allergies Home Medications Medication Instructions Recorded Confirmed Type Aspirin [Children's Aspirin] 1 tab PO ONCE 04/17/21 05/02/23 History Pnv No.95/Ferrous Fum/Folic AC 1 tab PO ONCE 04/17/21 05/02/23 History [ Multivitamin Tablet] NIFEdipine XL [Procardia XL] 30 mg PO DAILY 05/02/23 05/02/23 History Allergies Allergy/AdvReac Type Severity Reaction Status Date / Time No Known Allergies Allergy Verified 12/16/22 16:51 Exam Vital Signs Temp Pulse Resp BP Pulse Ox 05/02/23 12:57 98.0 F 78 16 137/74 98 Intake and Output 05/02/23 05/02/23 05/02/23 06:59 14:59 22:59 Other: Weight 149.685 kg Focused physical exam is performed. The patient is healthy-appearing, in no apparent distress. Breathing is non-labored. Abdomen is gravid and non-tender. Extremities are non-edematous, non-tender. heart tones are reactive and reassuring on NST. Results Result Diagrams: 05/02/23 11:54 08/14/23 11:54 Abnormal Lab Results - Last 24 Hours (Table) 05/02/23 05/02/23 Range/Units 11:47 11:54 Creatinine 0.44 L (0.52-1.04) mg/dL Ur Leukocyte Esterase Large H (Negative) Urine WBC 15 H (0-5) /hpf Amorphous Sediment Rare H (None) /hpf Urine Bacteria Rare H (None) /hpf Assessment and Plan Assessment: 28 year old at 36 weeks and 6 days presenting with chronic hypertension with superimposed pre-eclampsia without severe features. Plan: 1. cHTN with superimposed preE without severe features. PIH labs normal, P:C 0.6. Serial blood pressures overnight. 2. History of 2 prior sections. 3. 36 week and 6 day fetus. NSTs BID. Dispo: Plan for repeat section tomorrow at 1000. Time with Patient: Less than 30 (10 minutes)
[2023-05-03] MEDS: LACTATED RINGERS 1,000 ML IV SCH ×4 (00:17→22:05)
[2023-05-03] MEDS ORDERED: PENICILLIN G POTASSIUM 5,000,000 UNIT in DEXTROSE 5% IN WATER 100 ML IVPB STA ×2 (07:37)
[2023-05-03 07:39] LABS: INR 0.9 (<1.2); Partial Thromboplastin Time 22.2 sec (22.0-30.0); Prothrombin Time 9.3 sec (9.0-12.0)
[2023-05-03] MEDS: NIFEdipine XL 30 MG TAB.ER.24 PO SCH (08:04)
[2023-05-03] MEDS ORDERED: KETOROLAC 15 MG/ML 1 ML VIAL ONE (11:37)
[2023-05-03] MEDS ORDERED: NALBUPHINE 10 MG/ML (10 ML MDV) ONE (11:37)
[2023-05-03] MEDS ORDERED: ONDANSETRON 4 MG/2 ML VIAL ONE (11:37)
[2023-05-03] MEDS ORDERED: MORPHINE SULFATE (PF) 0.3 MG/0.3 ML SYR ONE (11:37)
[2023-05-03] MEDS ORDERED: PENICILLIN G POTASSIUM 2,500,000 UNIT in DEXTROSE 5% IN WATER 100 ML IVPB SCH ×2 (12:00)
[2023-05-03] MEDS ORDERED: METOCLOPRAMIDE 5 MG/ML 2 ML VIAL IVP PRN (12:54)
[2023-05-03] MEDS ORDERED: diphenhydrAMINE 50 MG CAP PO PRN (12:54)
[2023-05-03] MEDS ORDERED: SIMETHICONE 80 MG CHEWABLE PO PRN (12:54)
[2023-05-03] MEDS ORDERED: diphenhydrAMINE 25 MG CAP PO PRN (12:54)
[2023-05-03] MEDS ORDERED: ONDANSETRON 4 MG/2 ML VIAL IVP PRN (12:54)
[2023-05-03] MEDS ORDERED: diphenhydrAMINE 50 MG/ML 1 ML VIAL IVP PRN ×2 (12:54)
[2023-05-03] MEDS ORDERED: NALOXONE 0.4 MG/ML 1 ML VIAL IV PRN (12:54)
[2023-05-03] MEDS ORDERED: ZOLPIDEM 5 MG TAB PO PRN (12:54)
--- NOTE | 2023-05-03 12:54 | P.OP ---
Date of Procedure: 05/03/23 Preoperative Diagnosis: 1. Term IUP at 37 weeks and 0 days 2. Chronic Hypertension with Superimposed Pre-eclampsia without Severe Features 3. Prelabor Rupture of Membranes 4. History of 2 Prior Sections 5. Desires for Permanent Sterilization 6. Risk Reduction Postoperative Diagnosis: Same Procedure(s) Performed: Repeat Lower Transverse Section with Bilateral Salpingectomy Implants: None Anesthesia: spinal Surgeon: Pina Augustin Electric Deicer Inspector #1: Dayday Anderson Estimated Blood Loss (ml): 850 IV fluids (ml): 500 Urine output (ml): 50 (clear yellow) Pathology: other (placenta) Condition: stable Disposition: floor Indications for Procedure: 28 year old at 37 weeks presenting with chronic hypertension with superimposed pre-eclampsia without severe features who was admitted overnight for serial blood pressures and NSTs until scheduled section today. The patient had PROM this morning at 0615 for clear fluid. The patient was graphing contractions but not feeling them. Penicillin G was given for GBS prophylaxis given unknown status. Operative Findings: Viable female , colorless amniotic fluid. Apgars were 8 and 9 and 1 and 5 minutes respectively. Weight was 8 pounds and 11 ounces (3930 grams). Normal uterus, fallopian tubes, and bilateral ovaries. Description of Procedure: The patient was taken to the operating room where spinal anesthesia was found to be adequate. 2 grams of Ancef were given for infection prophylaxis. She was prepared and draped in the dorsal supine position with a leftward tilt. A Pfannenstiel skin incision was made with the scalpel. The incision was carried down to the fascia with a bovie. The fascia was incised and extended laterally with Colón scissors. The superior aspect of the fascia was grasped with Selina clamps. The underlying rectus muscle was dissected off sharply with Colón scissors. In a similar fashion, the inferior aspect of the fascia was elevated with Selina clamps and the rectus muscle and pyramidalis were dissected off. Excellent hemostasis was achieved with the bovie. The rectus muscle was in the midline down to the level of the pubic symphysis. Pre- peritoneal fatty tissue was bluntly dissected to expose the peritoneum. The peritoneum was found to be free of adherent bowel and entered sharply with Colón scissors. The peritoneal incision was extended superiorly and inferiorly to the bladder reflection with good visualization of the bladder. The bladder blade was inserted and vesicouterine peritoneum was identified. Intraabdominal survey revealed scant, clear peritoneal fluid and the thinned-out lower uterine segment. The vesicouterine peritoneum was opened with scissors and the bladder flap was developed. The bladder blade was repositioned to keep the bladder out of the operative field. The lower uterine segment was incised with a scalpel. The amniotic fluid was noted to be clear. The uterine incision was extended bluntly with lateral and upward traction. The fetus was in occiput anterior position. The head was elevated out of the pelvis with special attention paid to avoid using the uterine incision as a fulcrum. Gentle fundal pressure was applied once the head was brought into the incision. The was delivered with no difficulty. The mouth and nose were suctioned with a bulb. The cord was clamped and cut. was noted to be spontaneously crying. The was handed off to the director credit risk. IV oxytocin was initiated to facilitate uterine contractions. The placenta was delivered intact with manual massage of uterine fundus. The uterus was then exteriorized and the inside of the uterus was gently wiped with a lap sponge to assure complete removal of placental membranes. The uterine incision was closed with a 0-Polysorb suture in a running locked fashion. A second imbricating layer of 0-Polysorb was placed along the incision. The ovaries and tubes were found to be normal. Bilateral fallopian tubes were grasped at the fimbriated ends, cauterized, and cut with the Ligasure device to the level of the uterine cornua. These were sent for pathology along with the placenta. The uterus and ovaries were then gently returned to the abdominal cavity. The blood clots and fluid were wiped out of the abdomen and pelvis with moist laparotomy sponges. The pelvis was copiously suction irrigated.The uterine incision was reinspected and excellent hemostasis was noted. The fascial layer was closed with a 0-Vicryl suture. The subcutaneous tissue was reapproximated with 2-0 Plain Gut. The skin was closed with 4-0 Monocryl in a subcuticular fashion. The patient tolerated the procedure well. All the counts were correct times two. The patient was taken to the recovery room in a stable condition.
[2023-05-03] MEDS: KETOROLAC 15 MG/ML 1 ML VIAL IVP SCH ×2 (15:22→17:43)
[2023-05-03] MEDS: ACETAMINOPHEN TAB 500 MG TAB PO SCH (17:16)
[2023-05-03] MEDS: SENNOSIDES-DOCUSATE SODIUM 1 EACH TAB PO SCH (21:02)
[2023-05-03] MEDS ORDERED: ACETAMINOPHEN IV (For NPO) 1,000 MG in EMPTY BAG 1 BAG IVPB PRN (23:00)
[2023-05-04] MEDS: ACETAMINOPHEN TAB 500 MG TAB PO SCH ×4 (00:13→20:42)
[2023-05-04] MEDS: KETOROLAC 15 MG/ML 1 ML VIAL IVP SCH (00:16)
[2023-05-04] MEDS: LACTATED RINGERS 1,000 ML IV SCH (05:25)
[2023-05-04 06:27] LABS: Basophils % (A) 0 %; Eosinophils # (A) 0.1 k/uL (0-0.7); Eosinophils % (A) 1 %; HCT 33.5 % (34.0-46.0); HGB 11.5 gm/dL (11.4-16.0); Lymphocytes # (A) 1.8 k/uL (1.0-4.8); Lymphocytes % (A) 19 %; MCH 32.3 pg (25.0-35.0); MCHC 34.3 g/dL (31.0-37.0); MCV 94.3 fL (80.0-100.0); Mean Platelet Volume 9.6; Monocytes # (A) 0.6 k/uL (0-1.0); Monocytes % (A) 6 %; Neutrophils # (A) 6.7 k/uL (1.3-7.7); Neutrophils % (A) 72 %; Platelet Count 140 k/uL (150-450); RBC 3.56 m/uL (3.80-5.40); RDW 12.7 % (11.5-15.5); WBC 9.3 k/uL (3.8-10.6)
--- NOTE | 2023-05-04 07:10 | P.PN ---
Progress Note - Text Progress Note Date: 05/04/23 Postoperative day 1 status post section under spinal anesthesia, and i ntrathecal morphine given for postoperative analgesia, patient doing well, there is no anesthesia related complications, Patient had no headache, vital signs stable , Assessment and plan= postop day 1 status post , doing well there is no anesthesia related complication.
[2023-05-04] MEDS ORDERED: IBUPROFEN 600 MG TAB PO PRN (08:37)
--- NOTE | 2023-05-04 08:40 | P.PNOBGPC ---
Subjective - Subjective Principal diagnosis: t Interval history: The patient is doing well this morning and had no acute events overnight. She has no complaints this morning. She reports minimal lochia, passing flatus, ambulating, and eating/drinking without nausea or vomiting. Leon was removed a few hours ago and we are awaiting spontaneous void. She is her without difficulty. She denies chest pain, shortness of breathing, fevers, or chills overnight. She denies pain or swelling in the legs. She denies headache, visual disturbances, and right upper quadrant pain. Patient reports: Reports appetite normal, Reports pain well controlled, Reports ambulating normally [place]: doing well, nursing well Objective - Vital Signs Latest vital signs: Vital Signs Temp Pulse Resp BP Pulse Ox 05/04/23 04:00 80 18 127/81 97 05/04/23 00:00 98.1 F 78 18 121/79 96 05/03/23 20:00 97.8 F 68 18 104/65 97 05/03/23 14:39 77 16 136/74 98 05/03/23 14:09 80 16 122/58 98 05/03/23 13:39 70 16 121/57 95 05/03/23 13:24 77 16 139/61 95 05/03/23 13:09 72 16 124/61 95 05/03/23 12:54 74 18 135/63 95 05/03/23 12:39 69 16 130/57 95 Intake and Output 05/03/23 05/04/23 05/04/23 22:59 06:59 14:59 Output Total 500 350 Balance -500 -350 Output: Urine 500 350 Straight 350 Uretheral (Leon) 500 Other: Voiding Method Indwelling Catheter - Exam Extremities: Present: normal Abdomen: Present: normal appearance, soft Incision: Present: normal, dressed Uterus: Present: normal, firm - Labs Labs: Abnormal Lab Results - Last 24 Hours (Table) 05/04/23 Range/Units 06:14 RBC 3.56 L (3.80-5.40) m/uL Hct 33.5 L (34.0-46.0) % Plt Count 140 L (150-450) k/uL Assessment and Plan Assessment: 28 year old now POD#1 s/p repeat section at 37 weeks secondary to chronic hypertension with superimposed preeclampsia without severe features and prelabor rupture of membranes Plan: 1. Postoperative. Patient meeting milestones. Continue to monitor. Await void. 2. cHTN with superimposed pre-eclampsia. Continue Procardia XL 30mg daily. BPs have been normotensive. 3. Viable female infant. At bedside doing well. Dispo: Anticipate discharge home tomorrow.
[2023-05-04 09:09] VITALS: RESP 16
[2023-05-04] MEDS: NIFEdipine XL 30 MG TAB.ER.24 PO SCH (09:23)
[2023-05-04] MEDS: SENNOSIDES-DOCUSATE SODIUM 1 EACH TAB PO SCH ×2 (14:47→20:31)
[2023-05-05] MEDS: SENNOSIDES-DOCUSATE SODIUM 1 EACH TAB PO SCH (07:45)
--- NOTE | 2023-05-05 08:45 | P.DS ---
Providers Date of admission: 05/02/23 13:00 Expected date of discharge: 05/05/23 Attending physician: Pina Augustin MD Primary care physician: Stated None Hospital Course: Ms. Slaughter is a 28 year old now POD#2 s/p repeat section at 37 weeks secondary to PROM and cHTN with superimposed pre-eclampsia without severe features. The desires discharge home. Blood pressures have been normotensive on Procardia XL 30 mg daily since delivery. The patient is doing well this morning and had no acute events overnight. She has no complaints this morning. She reports minimal lochia, passing flatus, voiding without difficulty, ambulating, and eating/drinking without nausea or vomiting. doing well at bedside, formula feeding well. She denies chest pain, shortness of breathing, fevers, or chills overnight. She denies pain or swelling in the legs. She denies headache, visual disturbances, and right upper quadrant pain. Incision is clean, dry, and intact. Postoperative restrictions are reviewed with the patient including pelvic rest for 6 weeks, no lifting heavier than 15 pounds for 6 weeks. The patient is encouraged to call the office if she experiences any heavy bleeding, foul-smelling discharge, breast complaints, or any if she has any other concerns. She will follow up in the office with in 1 week for blood pressure check and 2 weeks for postoperative exam. All questions are answered. Assessment: 28 year old now POD#2 s/p repeact C/S at 37 weeks 2/2 PROM and cHTN w/ SI preE w/o SF Plan - Discharge Summary Discharge Rx Participant: No New Discharge Prescriptions: New Ibuprofen [Motrin] 600 mg PO Q6HR PRN #30 tab PRN Reason: Mild Pain (Scale 1 To 3) Acetaminophen Tab [Tylenol] 650 mg PO Q6H PRN #30 tab PRN Reason: Mild Pain (Scale 1 To 3) No Action Pnv No.95/Ferrous Fum/Folic AC [ Multivitamin Tablet] 1 tab PO ONCE Aspirin [Children's Aspirin] 1 tab PO ONCE NIFEdipine XL [Procardia XL] 30 mg PO DAILY Discharge Medication List Aspirin [Children's Aspirin] 1 tab PO ONCE 04/17/21 [History] Pnv No.95/Ferrous Fum/Folic AC [ Multivitamin Tablet] 1 tab PO ONCE 04/17/21 [History] NIFEdipine XL [Procardia XL] 30 mg PO DAILY 05/02/23 [History] Acetaminophen Tab [Tylenol] 650 mg PO Q6H PRN #30 tab 05/05/23 [Rx] Ibuprofen [Motrin] 600 mg PO Q6HR PRN #30 tab 05/05/23 [Rx] Follow up Appointment(s)/Referral(s): Pina Augustin MD [STAFF PHYSICIAN] - 1 Week (blood pressure check) Activity/Diet/Wound Care/Special Instructions: Instructions 1. Do not begin any exercise program for 3 weeks. 2. Do not resume sexual relations for 6 weeks or longer if uncomfortable. 3. You may take tub baths or showers at any time. 4. You may use tampons if desired after 6 weeks. 5. Keep any areas repaired with stitches clean and dry. 6. If you are not nursing, wear a good fitting, supportive bra during the day and limit fluid intake for at least 1 week to prevent breast engorgement. 7. Call the office, , within the next week to make appointment for your 6 week checkup if it has not already been made. 8. Report any of the following occurrences to the doctor promptly: a. Heavy, excessive bleeding b. Chills, fever c. Burning or frequency of urination d. Pain or redness and breasts if nursing e. Increasing pain or swelling of vulva (stitches). In addition to the above instructions, the following additional should be followed: 1. No heavy lifting or straining (exercising) until after 6 week checkup. 2. Keep abdominal incision clean and dry: You may wear a dressing if more comfortable. 3. Make office appointment for 2 weeks after delivery date. Discharge Disposition: HOME SELF-CARE
[2023-05-05 08:48] VITALS: BP 119/70; PULSE 71; TEMP 98.7
[2023-05-05] MEDS: LACTATED RINGERS 1,000 ML IV SCH (08:52)
[2023-05-05] MEDS: ACETAMINOPHEN TAB 500 MG TAB PO SCH ×2 (08:52→13:01)
[2023-05-05] MEDS: KETOROLAC 15 MG/ML 1 ML VIAL IVP SCH (08:53)
[2023-05-05] MEDS: NIFEdipine XL 30 MG TAB.ER.24 PO SCH (09:10)
== END 2023-05-05 12:58 | disposition home or self-care (01) | DRG 539 ==
LOC: FBPOP 11:34 → 4FBP 13:00
PROVIDERS: ADMIT Obstetrics & Gynecology; ATTEND Obstetrics & Gynecology
PROC: 10D00Z1 Extraction of Products of Conception, Low, Open Approach (ICD-10-PCS; principal; 2023-05-03)
PROC: 0UB70ZZ Excision of Bilateral Fallopian Tubes, Open Approach (ICD-10-PCS; 2023-05-03)
DX: O34.211 Maternal care for low transverse scar from previous cesarean delivery (principal); O99.214 Obesity complicating childbirth; O11.4 Pre-existing hypertension with pre-eclampsia, complicating childbirth; O42.92 Full-term premature rupture of membranes, unspecified as to length of time between rupture and onset of labor; Z23 Encounter for immunization; Z37.0 Single live birth; Z3A.37 37 weeks gestation of pregnancy; Z79.899 Other long term (current) drug therapy
CPT/HCPCS: 59025; 81001; 82565; 82570; 83615; 84156; 84450; 84460; 84520; 84550; 85025; 85610; 85730; 86850; 86900; 86901; 88307